=== PATIENT | male | born 1985 | race Native Hawaiian/Other Pacific Islander ===

== ENCOUNTER 2017-02-19 07:03 | Emergency (ER) | payer OTHER ==
[2017-02-19 07:23] VITALS: BP 136/82; PULSE 112; RESP 18; TEMP 98.1; O2SAT 100; BMI 21.2
--- NOTE | 2017-02-19 08:38 | ED PDOC ---
HPI: Abdomen Time Seen by Provider: 02/19/17 08:00 Chief Complaint (Nursing): Abdominal Pain Chief Complaint (Provider): Abdominal Pain History Per: Patient History/Exam Limitations: no limitations Onset/Duration Of Symptoms: Days (x1 day) Current Symptoms Are (Timing): Still Present Additional Complaint(s): 31 y/o male with a past medical history of Asthma who presents to the emergency department with a complaint of abdominal pain when twisting the body x1 day. Denies pain while sitting or laying down, trauma, nausea, vomiting, diarrhea, urinary discomforts, cough, runny nose, rash, chest pain, back pain, heavy lifting, strenuous acclivities. PMD: None Past Medical History Reviewed: Historical Data, Nursing Documentation, Vital Signs Vital Signs: Last Vital Signs Temp 98.1 F 02/19/17 08:12 Pulse 112 H 02/19/17 08:12 Resp 18 02/19/17 08:12 BP 136/82 02/19/17 08:12 Pulse Ox 100 02/19/17 09:27 - Medical History PMH: Asthma - Surgical History Other surgeries: testicular torsion surgery - Family History Family History: States: Hypertension (Father) - Social History Current smoker - smoking cessation education provided: No Alcohol: Social Drugs: Denies - Allergies Allergies/Adverse Reactions: Allergies Allergy/AdvReac Type Severity Reaction Status Date / Time No Known Allergies Allergy Verified 02/19/17 08:08 Review of Systems ROS Statement: Except As Marked, All Systems Reviewed And Found Negative Constitutional: Negative for: Other (trauma) ENT: Negative for: Nose Discharge Cardiovascular: Negative for: Chest Pain Respiratory: Negative for: Cough Gastrointestinal: Positive for: Abdominal Pain (pain worsens with movement). Negative for: Nausea, Vomiting, Diarrhea Genitourinary Male: Negative for: Dysuria, Frequency, Incontinence, Hematuria Musculoskeletal: Negative for: Back Pain, Other (Heavy lifting or strenuous work ) Skin: Negative for: Rash Physical Exam - Reviewed Nursing Documentation Reviewed: Yes Vital Signs Reviewed: Yes - Physical Exam Appears: Positive for: Non-toxic, No Acute Distress Head Exam: Positive for: ATRAUMATIC, NORMOCEPHALIC Skin: Positive for: Normal Color, Warm, Dry Neck: Positive for: Normal, Supple Cardiovascular/Chest: Positive for: Regular Rate, Rhythm. Negative for: Murmur Respiratory: Positive for: Normal Breath Sounds. Negative for: Accessory Muscle Use, Respiratory Distress Gastrointestinal/Abdominal: Positive for: Soft, Tenderness (RUQ tenderness to palpations) Back: Positive for: Normal Inspection. Negative for: L CVA Tenderness, R CVA Tenderness Extremity: Positive for: Normal ROM. Negative for: Pedal Edema Neurologic/Psych: Positive for: Alert, Oriented - Laboratory Results Result Diagrams: 02/19/17 08:52 02/19/17 08:52 - ECG O2 Sat by Pulse Oximetry: 100 (RA) Pulse Ox Interpretation: Normal Medical Decision Making Medical Decision Making: Time: 8:00 Initial impression: Abdominal Rectus muscle Pull Initial plan: --COMP Metabolic Panel --Lipase Stat --ED Urine Dipstick (POC) --CBC w/ differential --Obstructive Series (RAD) --Revaluation Time: 9:23 --Abdomen Obstructive Series X-ray FINDINGS: Heart size normal. Lung sandhu clear without infiltrate effusion or pneumothorax. No free air seen under the diaphragmatic surfaces. Nonobstructive /nonspecific bowel gas pattern. No definitive abnormal calcific densities. IMPRESSION: No acute cardiopulmonary disease. No evidence of acute mechanical bowel obstruction Scribe Attestation: Documented by Janet Gabriel, acting as a scribe for Kathy Barnes MD. Provider Scribe Attestation: All medical record entries made by the Scribe were at my direction and personally dictated by me. I have reviewed the chart and agree that the record accurately reflects my personal performance of the history, physical exam, medical decision making, and the department course for this patient. I have also personally directed, reviewed, and agree with the discharge instructions and disposition. 9.45a - patient is without distress. labs and x-rays reviewed with patient. reassured that his symptoms are c/w muscle strain and that there is no acute pathology noted. Disposition - Clinical Impression Clinical Impression: Muscle strain - Patient ED Disposition Is Patient to be Admitted: No Doctor Will See Patient In The: Office Counseled Patient/Family Regarding: Diagnosis, Need For Followup - Disposition Referrals: [facility] [Outside] [facility] [Outside] Disposition: Routine/Home Disposition Time: 09:30 Condition: STABLE Instructions: Muscle Strain (ED) Forms: [facility] ED School/Work Excuse - POA Present On Arrival: None
[2017-02-19 08:57] LABS: BASO % 0.2 % (0.0-2.0); EOS # 0.1 K/uL (0.0-0.7); EOS % 0.8 % (0.0-4.0); HEMATOCRIT 47.5 % (35.0-51.0); LYMPH # 1.5 K/uL (1.0-4.3); LYMPH % 18.4 % (20.0-40.0); MEAN CELL VOLUME 85.7 fl (80.0-94.0); MEAN CORPUSCULAR HEMOGLOBIN 28.9 pg (27.0-31.0); MEAN CORPUSCULAR HGB CONC 33.7 g/dL (33.0-37.0); MEAN PLATELET VOLUME 8.8 fl (7.2-11.7); MONO # 0.5 K/uL (0.0-0.8); MONO % 6.5 % (0.0-10.0); NEUT # 5.9 K/uL (1.8-7.0); NEUT % 74.1 % (50.0-75.0); NRBC % 0.1 % (0.0-0.0); RED CELL DISTRIBUTION WIDTH 13.2 % (11.5-14.5); WHITE BLOOD COUNT 7.9 K/uL (4.8-10.8)
[2017-02-19 09:14] LABS: ALKALINE PHOSPHATASE 93 U/L (38-126); ALT/SGPT 42 U/L (21-72); BILIRUBIN,TOTAL 1.4 mg/dl (0.2-1.3); BLOOD UREA NITROGEN 11 mg/dl (9-20); CALCIUM 9.6 mg/dL (8.4-10.2); CARBON DIOXIDE 24 mmol/L (22-30); CHLORIDE 105 mmol/L (98-107); GFR AFRICAN-AMERICAN > 60; GLUCOSE,RANDOM 91 mg/dL (75-110); LIPASE 63 U/L (23-300); POTASSIUM 5.4 MMOL/L (3.6-5.0); SODIUM 144 mmol/l (132-148); TOTAL PROTEIN 8.8 G/DL (6.3-8.2)
[2017-02-19 09:18] LABS: AST/SGOT 42 U/L (17-59)
--- NOTE | 2017-02-19 09:25 | RAD ---
PROCEDURE: Chest and abdominal series dated 02/19/2017 HISTORY: abdominal pain COMPARISON: No prior TECHNIQUE: PA view of the chest and supine/erect views of the abdomen performed. FINDINGS: Heart size normal. Lung sandhu clear without infiltrate effusion or pneumothorax. No free air seen under the diaphragmatic surfaces. Nonobstructive/nonspecific bowel gas pattern. No definitive abnormal calcific densities. IMPRESSION: No acute cardiopulmonary disease. No evidence of acute mechanical bowel obstruction
== END 2017-02-19 09:58 | disposition home or self-care (01) ==
LOC: H.ER 07:03
DX: S39.011A Strain of muscle, fascia and tendon of abdomen, initial encounter (principal); X50.1XXA Overexertion from prolonged static or awkward postures, initial encounter